=== PATIENT | female | born 1980 | race Caucasian/White ===

== ENCOUNTER 2024-04-19 08:35 | Emergency (ER) | payer OTHER, SELFPAY ==
[2024-04-19] VITALS (8 sets, daily range): BP systolic 111–142; BP diastolic 54–99; PULSE 64–75; RESP 16–20; TEMP 36.6–37; O2SAT 97–100; BMI 23.4
--- NOTE | 2024-04-19 08:49 | EKG12_ITS ---
Test Reason : Blood Pressure : */* mmHG Vent. Rate : 61 BPM Atrial Rate : 61 BPM P-R Int : 146 ms QRS Dur : 80 ms QT Int : 420 ms P-R-T Axes : 68 70 68 degrees QTcB Int : 422 ms Normal sinus rhythm Normal ECG Confirmed by MIRIAN CARBALLO, MODE ([id number]), offline editor COBY BAKER ([id number]) on 04/20/2024 8:14:41 AM Referred By: Confirmed By: MODE VELA MD
--- NOTE | 2024-04-19 08:50 | EX.ED.DYSGE1 ---
HPI History of Present Illness Chief Complaint: Shortness of Breath Informant: patient and spouse/S.O. Narrative Narrative: Sent from urgent care for evaluation. Reports working out this morning while doing squats felt lightheaded felt palpitations and dyspnea. While working felt palpitations heart rate from 70s to 120s reports resting heart rates typically in the 60s. She does not take any medications. Quarter pack per day smoker. She had travel to [place] over the holidays less than 2 weeks ago by plane. No leg swelling. In addition had upper respiratory illness on the of last month with cough that has resolved. No history of similar. Went to urgent care and was sent here. She does not take any hormone therapy. Prior similar symptoms: No PFSH PFSH Medical History Acute maxillary sinusitis, unspecified Acute bronchitis, unspecified Allergy/AdvReac Type Severity Reaction Status Date / Time Sulfa (Sulfonamide Allergy Mild rash Verified 04/19/24 08:36 Antibiotics) Social History Smoking Status: Light Smoker (<10/day) ROS ROS ED Constitutional Constitutional ED: Denies chills, fever(s) or sweats Eyes Eyes: Denies change in vision ENT ENT ED: Denies dysphagia or sore throat Cardiovascular Cardiovascular: Reports palpitations; Denies chest pain, leg edema or racing heartbeat Respiratory/Chest Respiratory/Chest: Reports dyspnea; Denies cough or dyspnea on exertion Gastrointestinal Gastrointestinal: Denies abdominal pain, diarrhea, nausea or vomiting Genitourinary Genitourinary ED: Denies dysuria, hematuria or urinary frequency Musculoskeletal Musculoskeletal: Denies back pain, extremity pain or neck pain Integumentary Denies rash or wounds Neurologic Neurologic: Denies headache(s), paresthesias or weakness EXAM Physical Exam Const Vital Signs: 04/19/24 08:36 04/19/24 09:00 04/19/24 09:39 Temperature 98.6 F Temperature Source Oral Pulse Rate 68 64 Respiratory Rate 18 20 H Respiratory Effort Normal Blood Pressure 142/99 H Blood Pressure Mean 113 Pulse Ox 98 100 Oxygen Delivery Method Room Air Room Air Room Air 04/19/24 10:00 Temperature Temperature Source Pulse Rate 75 Respiratory Rate 16 Respiratory Effort Blood Pressure Blood Pressure Mean Pulse Ox 100 Oxygen Delivery Method Room Air Positive well nourished and well developed General Appearance ED: well developed and NAD HEENT Reports moist mucous membranes normocephalic and atraumatic Eyes EOMs intact bilaterally and conjunctivae normal General Eye ED: Yes normal appearance of both eyes Neck no lymphadenopathy and supple General: Negative for tenderness Chest Wall Chest: Negative for tenderness Resp normal respiratory effort and normal air movement Resp Narrative: Symmetric breath sounds. Effort and Inspection: symmetric chest movement; Negative for respiratory distress Cardio regular rate, regular rhythm and no murmurs Peripheral Pulses: pulses 2+ throughout GI normal to inspection, nondistended, normoactive bowel sounds and non-tender Palpation: Negative for guarding or rebound tenderness present Extremity normal to inspection General Extremety ED: Negative for edema or tenderness General Extremity: Negative for edema Neuro oriented x3 and no sensory deficits noted Sensorium / Orientation: awake and alert Skin no rashes or lesions noted and no wounds MDM MDM MDM Narrative Medical decision making narrative: Interventions / MDM: Differential diagnosis: Palpitations Diagnosis considered but do not suspect: ACS however troponin negative and EKG with no ischemic findings. PE however CT negative. Pneumothorax however chest x-ray negative. My EKG interpretation: Sinus rate of 61, no ST or T wave changes. QTc 422. Imaging independently reviewed and interpreted by myself: 2 view chest x-ray: No acute process. CT angiogram chest: No PE. External documents reviewed: N/A Test considered but not ordered:N/A ED course: Vital stable no focal neurologic deficits. Exertional dyspnea lightheaded symptoms palpitations. Heart rate currently in the 60s. Will check EKG cardiac workup and D-dimer. 1040: Patient palpitations dyspnea with exertion. Symptoms improve with rest. EKG sinus rhythm rate at 61. No acute findings. Cardiac workup troponin less than 3 D-dimer negative at 0.27. Hemoglobin 13.8. Creatinine 0.92 sodium 139 potassium 4.1. At rest she is stable heart rate normal. She was ambulated with a pulse ox reported when down to 92% she had chest tightness of transient. Discussed with patient we will further evaluate due to symptoms with ambulation with CT angiogram to rule out PE. She agrees with plan at this time. PE study negative. Reassured on findings. Discussed outpatient follow-up and further testing as needed. Outpatient order for Holter monitor placed. Re-evaluation: stable Disposition discussed with patient/family/significant other: Patient significant other Case discussed with consulting clinician: N/A This note was generated with [employer] dictation software. It may contain incorrect words, spelling, and punctuation that were not noted in checking the note before signing. Lab Data Attestation: I reviewed the patient's lab results. Labs: Laboratory Results - last 24 hr 04/19/24 09:02 WBC 5.7 RBC 4.32 Hgb 13.8 Hct 40.6 MCV 94.0 MCH 31.9 MCHC 34.0 RDW Std Deviation 40.2 RDW Coeff of Da 11.7 Plt Count 243 MPV 8.7 Immature Gran % (Auto) 0.400 Neut % (Auto) 62.0 Lymph % (Auto) 25.7 Maury % (Auto) 9.8 Eos % (Auto) 1.6 Baso % (Auto) 0.5 Absolute Neuts (auto) 3.5 Absolute Lymphs (auto) 1.46 Nucleated RBC % 0 D-Dimer Quant (PE/DVT) 0.27 Sodium 139 Potassium 4.1 Chloride 106 Carbon Dioxide 30.0 Anion Gap 3 L BUN 20 H Creatinine 0.90 Estim Creat Clear Calc 73.90 Est GFR (MDRD) Af Amer 87 Est GFR (MDRD) Non-Af 72 BUN/Creatinine Ratio 22.2 H Glucose 97 Calcium 9.5 Troponin I High Sens < 3 L Radiography Diagnostic Testing: Clinical Impression(s) from Imaging Studies Chest X-Ray 04/19/24 10:00 IMPRESSION: Normal x-ray examination of the chest. Electronically Signed: Dane Flower MD at 10:31 EST , Chest CTA 04/19/24 11:00 IMPRESSION: Normal CTA chest examination, without a demonstrated pulmonary embolism or arterial dissection. Electronically Signed: Dane Flower MD at 11:16 EST , Discharge Plan Triage Chief Complaint: Shortness of Breath ED Provider: Ronny Flood Dx/Rx/DC Orders Clinical Impression: Palpitations, Dyspnea Instructions: ED Dyspnea, ED Palpitations Primary Care Provider: Jacqueline Paredes Referrals: Jacqueline Paredes, [Primary Care Provider] - 3-5 Days Activity Restrictions/Additional Instructions: EKG cardiac workup D-dimer negative. Chest x-ray and CT angiogram chest negative. EKG normal sinus rhythm. Avoid caffeine products. You are being set up for Holter monitor for 48 hours for which you will be contacted. Monitor symptoms and follow-up with your doctor for further testing which can possibly include a stress echocardiogram. Print Language: Bhutanese Disposition Disposition: Home, Self Care Discharge Date/Time: 04/19/24 12:33
[2024-04-19 09:09] LABS: Absolute Lymphocyte Count 1.46 X10^3/uL (0.83-4.51); Absolute Neutrophil Count 3.5 X10^3/uL (2.0-7.7); Basophil# 0.03 X10^3/uL; Basophil% 0.5 % (0-1); Eosinophil# 0.09 X10^3/uL; Eosinophils% 1.6 % (0-5); Hematocrit 40.6 % (37-47); Hemoglobin 13.8 g/dL (12.0-15.0); Lymphocyte # 1.46 X10^3/ul (0.83-4.51); Lymphocyte % 25.7 % (19-41); Mean Corpuscular Hgb 31.9 pg (27.0-32.0); Mean Platelet Vol. 8.7 fl (6.2-12.0); Monocyte# 0.56 X10^3/uL; Monocyte% 9.8 % (0-10); NRBC Flagged by Analyzer 0 % (0-5); Neutrophil # 3.53 X10^3/uL (2.7-7.7); Platelet Count 243 K/mm3 (150-450); RBC Distribution Width CV 11.7 % (11.6-14.6); RBC Distribution Width SD 40.2 fl (35.1-43.9); Red Blood Count 4.32 M/mm3 (4.2-5.4); White Blood Count 5.7 K/mm3 (4.4-11.0)
[2024-04-19 09:26] LABS: D-Dimer Quantitative (DVT/PE) 0.27 FEU/ug/m (0.27-0.49)
[2024-04-19 09:39] LABS: Anion Gap 3 (5-15); BUN 20 mg/dL (7-18); BUN/Creat Ratio 22.2 RATIO (10-20); Calcium,Total 9.5 mg/dL (8.5-10.1); Chloride 106 mmol/L (98-107); EST Glomerular Filtration Rate 72 mL/min (>60); Est Glom Filt Rate - Afr Amer 87 mL/min (>60); Glucose 97 mg/dL (74-106); Potassium 4.1 mmol/L (3.5-5.1); Sodium Level 139 mmol/L (136-145); Troponin-I HS < 3 pg/mL (3.0-54.0)
--- NOTE | 2024-04-19 10:00 | RAD_ITS ---
STUDY: X-RAY CHEST REASON FOR EXAM: Female, 43 years old. Cough TECHNIQUE: PA and lateral views of the chest. COMPARISON: None. FINDINGS: The lungs are clear and expanded. There is no demonstrated pleural abnormality. Normal size heart. Normal mediastinum and herminio. Normal visualized pulmonary arteries. Normal visualized aortic arch and descending thoracic aorta. Normal visualized thoracic spine. Normal visualized ribs, clavicles, and shoulders. There is no demonstrated abnormality of the visualized soft tissue structures of the upper abdomen. RAD/Chest PA and Lateral IMPRESSION: Normal x-ray examination of the chest. Electronically Signed: Dane Flower MD at 10:31 EST ,
--- NOTE | 2024-04-19 11:00 | CT_ITS ---
STUDY: CTA CHEST REASON FOR EXAM: Female, 43 years old. Dyspnea RADIATION DOSAGE (If Supplied By Facility): CTDIvol = ( 5.37 ) mGy, DLP = ( 164.19 ) mGycm TECHNIQUE: The examination was performed with the intravenous administration of IV 100mL [id number]-[id number]. Post-processing of the angiographic images was performed, with multiplanar reformation and 3D reconstruction. Individualized dose optimization techniques were used for this CT. COMPARISON: Comparison is made with prior chest radiograph done earlier in the day. FINDINGS: Normal enhancement of the main pulmonary artery and right and left pulmonary arteries. Normal enhancement of the bilateral peripheral pulmonary arteries. There is no demonstrated pulmonary embolism. Normal thoracic aorta and visualized great vessels. There is no demonstrated aortic dissection. Normal heart and pericardium. No coronary artery calcification is seen. Normal mediastinum. Normal hilar regions. Normal visualized trachea and bronchi. The lungs are well expanded. Normal pulmonary parenchyma. Normal pleura. Normal chest wall structures. Normal osseous structures. Normal visualized upper abdomen. CT/CTA Chest W/WO Contrast IMPRESSION: Normal CTA chest examination, without a demonstrated pulmonary embolism or arterial dissection. Electronically Signed: Dane Flower MD at 11:16 RUST ,
== END 2024-04-19 12:33 | disposition home or self-care (01) ==
PROVIDERS: Emergency Provider Emergency Medicine; PCP Family Medicine; Visit Provider Emergency Medicine
DX: R00.2 Palpitations (principal); R06.02 Shortness of breath; F17.290 Nicotine dependence, other tobacco product, uncomplicated
CPT/HCPCS: 71046; 71275; 80048; 84484; 85025; 85379; 93005; 99284; Q9967; A4216

== ENCOUNTER → 2024-04-19 | Outpatient (CLI) | payer OTHER, SELFPAY | END | disposition home or self-care (01) | LOC: PSN 12:19 | PROVIDERS: PCP Family Medicine; Visit Provider Emergency Medicine | DX: R00.2 Palpitations (principal) ==